=== PATIENT | female | born 1965 | race Two or more races ===

== ENCOUNTER 2022-11-28 18:01 | Emergency (ER) | payer OTHER, SELFPAY ==
--- NOTE | ~2022-11-28 | CT_ITS ---
EXAMINATION: CT cervical spine wo con DATE: 11/28/2022 19:21 INDICATION: Head injury. Scalp laceration. TECHNIQUE: Computed tomography (CT) of the cervical spine was performed without intravenous contrast. Automated exposure control and iterative reconstruction technique were employed. Exam dose: 327.34 mGy-cm total exam DLP. COMPARISON: None FINDINGS: There is reversal of cervical curvature which may be due to positioning and/or muscle spasm . C1 and C2 are normally aligned and the odontoid process is intact. No fracture or dislocation or lock ed facet or prevertebral soft tissue swelling. There is moderate degenerative disc disease at C5-6 an C7-T1.. IMPRESSION: Reversal of cervical curvature which may be due to positioning or muscle spasm Mild cervical spondylosis No fracture or dislocation or locked facet Reviewed, dictated and finalized at [facility]. Reviewed, dictated and finalized at [facility].
--- NOTE | ~2022-11-28 | CT_ITS ---
EXAMINATION: CT brain wo con DATE: 11/28/2022 19:19 INDICATION: Head injury, scalp laceration TECHNIQUE: Computed tomography (CT) of the head was performed without intravenous contrast. The mA wa s adjusted according to patient size. Iterative reconstruction technique was employed. Exam dose: 60 5.33 mGy-cm total exam DLP. COMPARISON: None FINDINGS: No intracranial mass lesion or hemorrhage or cerebrovascular accident, midline shift or mas s effect is detected. No subdural or epidural hematoma. There is a blowout fracture of the medial wall of the right orbit, likely old. Left frontal scalp laceration. No radiopaque foreign body. No coup or contrecoup intracranial injury is noted. No skull fracture or bone destruction is noted otherwise. Included paranasal sinuses and mastoid air cells are unremarkable. IMPRESSION: Left frontal scalp laceration; no skull fracture or acute intracranial finding Reviewed, dictated and finalized at [facility]. Reviewed, dictated and finalized at [facility]. IMPRESSION: Left frontal scalp laceration; no skull fracture or acute intracran ial finding
[2022-11-28 18:44] VITALS: BP 138/78; PULSE 88; RESP 16; TEMP 36.9; O2SAT 99
--- NOTE | 2022-11-28 19:31 | ED.WOUNDLAC ---
HPI - Wound/Laceration General Chief Complaint: Wound/Laceration Stated Complaint: laceration to head Time Seen by Provider: 11/28/22 18:52 Source: patient Mode of arrival: ambulatory Limitations: no limitations History of Present Illness HPI narrative: Patient is a 57 y/o female who presents to the ED with c/o laceration to her left frontal scalp. Patient reports she was cleaning out one of her large trash cans today. When she stood the trash can upright, the lid flipped over and hit her in her head. She sustained a large laceration to her left frontal scalp. Bleeding controlled by the time of my evaluation. Patient denied any LOC. No other injuries. She denies any dizziness, lightheadedness, nausea, vomiting, vision changes. Denies any neck pain. Tetanus status unknown. Related Data Allergies Allergy/AdvReac Type Severity Reaction Status Date / Time No Known Allergies Allergy Verified 11/28/22 18:49 Review of Systems Review of Systems: CONSTITUTIONAL: Denies fever, chills, or sweats. EYES: Denies visual changes. CARDIOVASCULAR: Denies chest pain. RESPIRATORY: Denies cough or dyspnea. GASTROINTESTINAL: Denies abdominal pain, nausea, vomiting. GENITOURINARY: Denies dysuria or hematuria. SKIN: See HPI. MUSCULOSKELETAL: Denies back pain, neck pain, joint pain, or myalgia. NEUROLOGIC: See HPI. All systems reviewed & are unremarkable except as noted in HPI and below PMFSH Past Medical History Medical History (Updated 11/28/22 @ 20:27 by Radha Gabriel PA-C) No pertinent past medical history Surgical History Surgical History (Updated 11/28/22 @ 19:34 by Radha Gabriel PA-C) No pertinent past surgical history Social History Social History (Updated 11/28/22 @ 19:34 by Radha Gabriel PA-C) Smoking status: Never smoker Exam Narrative: GENERAL: Well appearing, well-nourished, non-toxic, in no acute distress. HEAD: Normocephalic. Large approximately 8.5 cm linear, fairly superficial, laceration to left frontal scalp, no active bleeding. Underlying surrounding contusion, tender to palpation. EYES: PERRLA/EOMI, conjunctiva clear. NECK: Supple. No adenopathy, no masses. No tenderness to palpation. RESPIRATORY: Airway patent, respirations nonlabored. CARDIOVASCULAR: Regular rate and rhythm without murmurs, rubs, or gallops. Radial pulses 2+ and equal bilaterally. ABDOMINAL: Soft, nontender, nondistended, no hepatosplenomegaly. Normoactive BS. MUSCULOSKELETAL: Moves all extremities. Strength/ROM intact without gross deformities. No tenderness in midline thoracic or lumbar spine. SKIN: Warm, dry, normal color. No rashes. NEURO: A&O X3. Speech clear. Cranial nerves II-XII grossly intact. Steady gait. No ataxic movements. PSYCHIATRIC: Appropriate mood and affect. Normal interaction. Course Vital Signs Vital signs: Vital Signs Temperature 98.4 F 11/28/22 18:44 Pulse Rate 88 11/28/22 18:44 Respiratory Rate 16 11/28/22 18:44 Blood Pressure 138/78 11/28/22 18:44 Pulse Oximetry 99 11/28/22 18:44 Temperature 98.4 F 11/28/22 18:44 Pulse Rate 64 11/28/22 20:59 Respiratory Rate 12 11/28/22 20:59 Blood Pressure 116/81 11/28/22 20:59 Pulse Oximetry 99 11/28/22 20:59 Procedures Laceration Laceration 1: Date: 11/28/22 Time: 20:10 Site: scalp Side (If applicable): left Size (cm): 8.5 Description: linear Depth: simple, single layer Local Anesthetic: other anesthetic (topical LET) Pre-repair: wound explored and irrigated ====== Skin Level ====== Skin layer closed with: suzette (#9) ====== Subcutaneous Layer ====== ====== Muscle Layer ====== ====== Tendon Layer ====== MDM - Wound/Laceration MDM Narrative Medical decision making narrative: Patient presented to ED with head injury from trash can lid, large scalp laceration. No active bleeding upon my evaluation. Vit
[2022-11-28] MEDS: LIDOCAINE, EPINEPHRINE, TETRACAINE VISCOUS SOLN 3 ML TOPICAL (19:32)
[2022-11-28] MEDS: TETANUS,DIPHTHERIA,AC PERTUSSIS ADULT (0.5 ML) BOOSTRIX IM (19:33)
[2022-11-28] MEDS: ACETAMINOPHEN 500 MG TABLET 1000 MG PO (20:41)
[2022-11-28 20:59] VITALS: BP 116/81; PULSE 64; RESP 12; O2SAT 99
== END 2022-11-28 21:01 | disposition home or self-care (01) ==
PROVIDERS: Emergency Provider Physician Assistant
DX: S01.01XA Laceration without foreign body of scalp, initial encounter (principal); W20.8XXA Other cause of strike by thrown, projected or falling object, initial encounter; Z23 Encounter for immunization
CPT/HCPCS: 12004; 70450; 72125; 90471; 90715; 99284; A9270

== ENCOUNTER 2022-12-04 18:27 | Emergency (ER) | payer OTHER, SELFPAY ==
[2022-12-04 18:27] VITALS: BP 128/74; PULSE 88; RESP 20; TEMP 36.3; O2SAT 100
--- NOTE | 2022-12-04 18:55 | ED.GENADULT ---
HPI - General Adult General Chief complaint: Recheck/Abnormal Lab/Rx Stated complaint: staple removal Time Seen by Provider: 12/04/22 18:44 History of Present Illness HPI narrative: 57-year-old female presented the emergency department for evaluation of suture removal. Patient had the sutures placed last after receiving a head injury from a garbage can. Patient has been using Neosporin to the wound. Patient reports she is traveling to [facility] tomorrow and was hoping to have the suzette removed. Related Data Allergies Allergy/AdvReac Type Severity Reaction Status Date / Time No Known Allergies Allergy Verified 11/28/22 18:49 Review of Systems Review of Systems: All systems reviewed & are unremarkable except as noted in HPI and below PMFSH Past Medical History Medical History (Updated 12/04/22 @ 19:00 by Mario Caballero MD) No pertinent past medical history Surgical History Surgical History (Updated 11/28/22 @ 19:34 by Radha Gabriel PA-C) No pertinent past surgical history Social History Social History (Updated 11/28/22 @ 19:34 by Radha Gabriel PA-C) Smoking status: Never smoker Exam Narrative: APPEARANCE: Well appearing, no pain, no distress, well-nourished. HEAD: normocephalic, atraumatic. EYES: PERRLA/EOMI, conjunctivae clear. NOSE: Normal no drainage NECK: Supple. No adenopathy, no masses. RESPIRATORY: Airway patent, respirations nonlabored. Clear to auscultation bilaterally, no rales, rhonchi, wheezing. CARDIOVASCULAR: Regular rate and rhythm without murmurs rubs or gallops. ABDOMINAL: Soft, nontender, nondistended, normal bowel sounds MUSCULOSKELETAL: Moves all extremities. Strength/ROM intact, No edema, No calf tenderness. NEURO: Alert. Cranial nerves II through XII intact. Good gait. Good coordination SKIN: Laceration is well-healing. 9 suzette were removed. Course Course Emergency Course: 57-year-old female presenting for evaluation of suture removal. 9 sutures were removed. Wound was well-healed. Patient was encouraged of close follow-up with her primary care physician. Vital Signs Vital signs: Vital Signs Temperature 97.4 F L 12/04/22 18:27 Pulse Rate 88 12/04/22 18:27 Respiratory Rate 20 12/04/22 18:27 Blood Pressure 128/74 12/04/22 18:27 Pulse Oximetry 100 12/04/22 18:27 Oxygen Delivery Room Air 12/04/22 18:27 Temperature 97.4 F L 12/04/22 18:27 Pulse Rate 88 12/04/22 18:27 Respiratory Rate 20 12/04/22 18:27 Blood Pressure 128/74 12/04/22 18:27 Pulse Oximetry 100 12/04/22 18:27 Oxygen Delivery Room Air 12/04/22 18:27 Medical Decision Making Vital Signs Vital Signs: Vital Signs Temperature 97.4 F L 12/04/22 18:27 Pulse Rate 88 12/04/22 18:27 Respiratory Rate 20 12/04/22 18:27 Blood Pressure 128/74 12/04/22 18:27 Pulse Oximetry 100 12/04/22 18:27 Oxygen Delivery Room Air 12/04/22 18:27 Temperature 97.4 F L 12/04/22 18:27 Pulse Rate 88 12/04/22 18:27 Respiratory Rate 20 12/04/22 18:27 Blood Pressure 128/74 12/04/22 18:27 Pulse Oximetry 100 12/04/22 18:27 Oxygen Delivery Room Air 12/04/22 18:27 Discharge Plan Discharge Clinical Impression: Encounter for removal of sutures Patient Disposition: Home, Self-Care Condition: Stable Instructions: Antibiotic Form, Staple Care (ED) Additional Instructions: Continue wound care as directed. Have close follow-up with your primary care physician. Follow-up/Referrals: PHYSICIAN,INFANT CAREGIVER [Primary Care Provider] -
== END 2022-12-04 19:04 | disposition home or self-care (01) ==
PROVIDERS: Emergency Provider Emergency Medicine
DX: S01.91XD Laceration without foreign body of unspecified part of head, subsequent encounter (principal); W22.8XXD Striking against or struck by other objects, subsequent encounter
CPT/HCPCS: 15853; 99281